=== PATIENT | female | born 1970 | race Caucasian/White ===

== ENCOUNTER → 2018-03-24 | Outpatient (CLI) | payer OTHER ==
[2018-03-24 11:30] LABS: Basophils # (A) 0.1 k/uL (0-0.2); Basophils % (A) 1 %; Eosinophils # (A) 0.3 k/uL (0-0.7); Eosinophils % (A) 3 %; HCT 46.9 % (34.0-46.0); HGB 15.5 gm/dL (11.4-16.0); Lymphocytes # (A) 3.4 k/uL (1.0-4.8); Lymphocytes % (A) 30 %; MCH 29.7 pg (25.0-35.0); MCHC 32.9 g/dL (31.0-37.0); MCV 90.3 fL (80.0-100.0); Mean Platelet Volume 6.7; Monocytes # (A) 0.4 k/uL (0-1.0); Monocytes % (A) 4 %; Neutrophils # (A) 6.9 k/uL (1.3-7.7); Neutrophils % (A) 61 %; Platelet Count 324 k/uL (150-450); RDW 13.7 % (11.5-15.5); WBC 11.3 k/uL (3.8-10.6)
[2018-03-24 11:37] LABS: Potassium 4.8 mmol/L (3.5-5.1)
== END | disposition home or self-care (01) ==
LOC: LABPAT 11:02
PROVIDERS: ATTEND Orthopaedic Surgery
DX: Z01.812 Encounter for preprocedural laboratory examination (principal)
CPT/HCPCS: 36415; 80051; 85025

== ENCOUNTER 2018-03-26 10:39 | Day surgery (SDC) | payer OTHER ==
[2018-03-25 11:40] VITALS: BMI 34.4
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
[~2018-03-26 10:39] MED LIST: DEXAMETHASONE SOD PHOSPHATE 10 MG/ML 1 ML VIAL IV ONE; LACTATED RINGERS 1,000 ML IV SCH; LIDOCAINE 1% 20 ML VIAL (10MG/ML) FOR IV START INTRADERMA PRN; MIDAZOLAM 2 MG/2 ML VIAL IV PRN; ceFAZolin IN SWFI 2 GM/20 ML SYRINGE IVP ONE; fentaNYL (PF) 50 MCG/ML 2 ML AMP IV PRN
[2018-03-26] MEDS ORDERED: ONDANSETRON 4 MG/2 ML VIAL IVP ONE (11:49)
[2018-03-26] MEDS ORDERED: fentaNYL (PF) 50 MCG/ML 2 ML AMP IV ONE (12:39)
[2018-03-26] MEDS ORDERED: LIDOCAINE 1% INJ 10MG/ML (20 ML MDV) ONE (12:53)
[2018-03-26] MEDS ORDERED: MIDAZOLAM 2 MG/2 ML VIAL ONE (12:53)
[2018-03-26] MEDS ORDERED: ROPIVACAINE 5 MG/ML 30 ML VIAL ONE (12:53)
[2018-03-26] MEDS ORDERED: ePHEDrine SULFATE/0.9% NACL/PF 50 MG/5 ML SYRINGE IV ONE (12:53)
[2018-03-26] MEDS ORDERED: PHENYLEPHRINE-0.9% NACL SYG 1 MG/10 ML SYRINGE ONE (12:53)
[2018-03-26] MEDS ORDERED: fentaNYL (PF) 50 MCG/ML 2 ML AMP ONE (12:53)
[2018-03-26] MEDS ORDERED: PROPOFOL 10 MG/ML 20 ML VIAL IV ONE (12:53)
[2018-03-26] MEDS ORDERED: SUCCINYLCHOLINE CHLORIDE VIAL 200 MG/10 ML VIAL IV ONE (12:53)
[2018-03-26] MEDS ORDERED: ceFAZolin 1,000 MG in SODIUM CHLORIDE 0.9% 1,000 ML IRRIGATION ONE (13:27)
--- NOTE | 2018-03-26 13:52 | P.ONQ ---
Anesthesiology Proc Note - PNB - Peripheral Nerve Block Performed Left Supraclavicular Single Procedure Start Time: 12:38 Procedure Stop Time: 12:50 Indication: Requested by physician Specifically requested for management of pain by : Star Martinez Sedation Type: Sedate with meaningful contact maintained Preparation: Sterile Prep Needle Types: Other (see comment) (Pujunk ) Needle Size: 100mm (4") Needle Gauge: 21 Technique: Ultrasound Injectate: 0.5% Ropivacaine (see comment for volume) Blood Aspirated: No Pain Paresthesia on Injection Noted: No Resistance on Injection: Normal Events: Uneventful and Well Tolerated
--- NOTE | 2018-03-26 14:29 | P.OP ---
Date of Procedure: 03/26/18 Preoperative Diagnosis: Displaced left intra-articular distal radius fracture3 part Postoperative Diagnosis: Same Procedure(s) Performed: Open reduction and internal fixation left intra-articular distal radius fracture Implants: [employer] 3-hole standard width volar plate Anesthesia: amanda BLACKWELL Surgeon: Star Martinez Aircraft Engine Mechanic #1: Hung Hernandez Estimated Blood Loss (ml): 10 Pathology: none sent Condition: stable Disposition: PACU Indications for Procedure: The patient's a 47-year-old female who presents after falling about a week and half ago injuring her left wrist. Upon evaluation she is noted have a significantly displaced intra-articular left distal radius fracture. A discussion of the risks and benefits of operative intervention was made with patient she opted to proceed. Operative risks to include infection, neurovascular injury, development of blood clots, possible development nonunion , possible development of malunion and possible need for subsequent procedures was discussed. Informed consent was obtained. Operative Findings: As below Description of Procedure: The patient was brought to the operating room, and after induction of general anesthesia left upper extremity was prepped and draped in normal fashion. Fluoroscopy was used to check the adequacy of reduction with longitudinal traction and manipulation. The tourniquet was inflated to 250 mmHg. A 6 cm incision was then made along the volar aspect the left wrist centered over the FCR. The skin was incised sharply. Subcutaneous tissues were divided bluntly. The tendon sheath was opened and the FCR was gently retracted ulnarly and the radial artery retracted radially. The underlying fascia was opened. The contents the carpal canal were bluntly dissected and retracted ulnarly. The pronator quadratus was elevated subperiosteally. The fracture site was identified and cleaned of clot and debris. This was then provisionally reduced. A 3 hole volar plate was placed provisionally with K wires and position was checked with fluoroscopy. A cortical screw was placed proximally in the sliding hole. The distal row of locked smooth pegs was placed. This was checked with fluoroscopy. The proximal was placed in a similar fashion. The remaining proximal cortical screws were placed. Final fluoroscopic views to include PA, AP, and elevated lateral showed adequate reduction of the fracture and the articular surface. The wound was irrigated normal saline. The subcutaneous tissues were reapproximated interrupted 3-0 Vicryl suture. The skin was reapproximated with 4-0 subcuticular Prolene suture. Steri-Strips were applied. The tourniquet was deflated with approximately 55 minutes total tourniquet time. A sterile dressing was applied in addition to a volar splint. The patient was awoken from general anesthesia and transferred to recovery room in good condition. Blood loss was estimated 10 mL. No complications were incurred. Sponge and needle counts were correct in the case.
--- NOTE | 2018-03-26 14:34 | FL ---
Fluoroscopy HISTORY: Wrist fracture 12 seconds fluoroscopy time supplied to the referring clinician. 3 intraoperative C-arm images docum ent the procedure. See dictated report from orthopedic surgery.
--- NOTE | 2018-03-26 14:35 | XR ---
Limited left wrist HISTORY: Wrist fracture 3 intraoperative C-arm images document the procedure.
[2018-03-26 14:38] VITALS: TEMP 97.1
[2018-03-26 15:38] VITALS: RESP 18
[2018-03-26 15:49] VITALS: PULSE 91
[2018-03-26 16:02] VITALS: BP 138/85
== END 2018-03-26 16:28 | disposition home or self-care (01) ==
LOC: OR 10:39
PROVIDERS: ATTEND Orthopaedic Surgery
DX: S52.572A Other intraarticular fracture of lower end of left radius, initial encounter for closed fracture (principal); W01.0XXA Fall on same level from slipping, tripping and stumbling without subsequent striking against object, initial encounter; Y92.009 Unspecified place in unspecified non-institutional (private) residence as the place of occurrence of the external cause; F17.210 Nicotine dependence, cigarettes, uncomplicated; Z79.891 Long term (current) use of opiate analgesic; Z79.899 Other long term (current) drug therapy; Z79.1 Long term (current) use of non-steroidal anti-inflammatories (NSAID)
CPT/HCPCS: 64415; 81025; 73110; 25609; C1713; J2250; J0330; J1100; J2405; J0690 ×2; J2001; J3010; J2795; J2370; J2704

== ENCOUNTER → 2018-11-05 | Outpatient (CLI) | payer OTHER ==
--- NOTE | 2018-11-05 08:19 | MR ---
EXAMINATION TYPE: MR wrist LT wo con DATE OF EXAM: 11/05/2018 COMPARISON: 03/26/2018 fluoroscopy HISTORY: Lt wrist intraarticular fx lower end radius CONTRAST: None TECHNIQUE: Multiplanar, multiecho imaging on a 3.0 Audrey magnet is performed through the left wrist. FINDINGS: There is fixation of the distal radius which has susceptibility artifact from the screws and plate. T his may cause some limitation during portions of the examination. Attention is paid to the distal radius. There is a hyperintense signal within the mid radius in a arminda gitudinal direction extending to the articular surface. Example image 401 image 14. This could be a n onunion longitudinal fracture. This extends towards the scapholunate junction. This appears to corres pond to the fluoroscopy imaging. There is increased signal within the lunate greater along the radial lunate junction. Contusion and e estrellita should be considered. Scapholunate ligament is not completely defined. No increased space is evident however. Partial or co mplete tear could be considered. The triangular fibrocartilage appears intact. Flexor and extensor tendons have normal low signal. The mid extensor tendons are not well visualized at the level of the radius. Median nerve appears normal. Flexor tendons appear unremarkable. IMPRESSIONS: 1. Small nonunion of a longitudinal fracture at the distal radius is not excluded. No diastases is ap preciated. 2. Contusion and/or edema through the lunate is present. Underlying fracture is not identified. 3. Scapholunate ligament is suspected to be disrupted. No increase in scapholunate space is apparent.
== END | disposition home or self-care (01) ==
LOC: RADMRIMAIN 06:12
PROVIDERS: ATTEND Orthopaedic Surgery
DX: S52.572S Other intraarticular fracture of lower end of left radius, sequela (principal); M66.342 Spontaneous rupture of flexor tendons, left hand

== ENCOUNTER → 2019-03-04 | Day surgery (SDC) | payer OTHER ==
[2019-03-02 12:07] VITALS: BMI 34.4
[~2019-03-04] MED LIST changes: +BUPIVACAINE (PF) 0.5% 30 ML VIAL SQ ONE; +HYDROmorphone (PF) 1 MG/ML ONE; +HYDROmorphone 0.5 MG/0.5 ML SYRINGE IVP PRN; +LACTATED RINGERS 1,000 ML IV ONE; +LIDOCAINE 1% 20 ML VIAL (10MG/ML) FOR IV START INTRADERMA ONE; -LIDOCAINE 1% 20 ML VIAL (10MG/ML) FOR IV START INTRADERMA PRN; +LIDOCAINE 1% INJ 10MG/ML (20 ML MDV) ONE; +LIDOCAINE 1%-EPI 1:100,000 20 ML VIAL SQ ONE; +MIDAZOLAM 2 MG/2 ML VIAL ONE; +ONDANSETRON 4 MG/2 ML VIAL IVP ONE; +PHENYLEPHRINE-0.9% NACL SYG 1 MG/10 ML SYRINGE ONE; +PROPOFOL 10 MG/ML 20 ML VIAL IV ONE; +SCOPOLAMINE 1.5MG/72HR PATCH TRANSDERM ONE; +SUCCINYLCHOLINE CHLORIDE 100 MG/5 ML SYR IV ONE; -ceFAZolin IN SWFI 2 GM/20 ML SYRINGE IVP ONE; -fentaNYL (PF) 50 MCG/ML 2 ML AMP IV PRN; +fentaNYL (PF) 50 MCG/ML 2 ML AMP ONE
[2019-03-04 17:24] VITALS: TEMP 98
[2019-03-04 18:02] VITALS: BP 144/80; PULSE 86; RESP 17
--- NOTE | 2019-03-05 09:29 | FL ---
Fluoroscopy HISTORY: Hardware removal 5 seconds fluoroscopy time supplied to the referring clinician. 5 intraoperative C-arm images docume nt the procedure. See dictated report from orthopedic surgery.
--- NOTE | 2019-03-05 09:30 | XR ---
Limited left wrist HISTORY: Hardware removal 5 intraoperative images document the procedure.
--- NOTE | 2019-03-06 12:28 | P.OP ---
Date of Procedure: 03/04/19 Preoperative Diagnosis: 1. Spontaneous rupture of the left flexor pollicis longus (FPL) tendon 2. Retained hardware status post open reduction and internal fixation of left distal radius fracture Postoperative Diagnosis: 1. Spontaneous rupture of the left flexor pollicis longus (FPL) tendon 2. Partial rupture of the left index finger flexor digitorum superficialis (FDS) tendon, Zone 5 3. Retained hardware status post open reduction and internal fixation of left distal radius fracture Procedure(s) Performed: 1. Exploration of left hand and wrist 2. Removal of hardware - left distal radius 3. Debridement of partial tear of the left index finger FDS tendon 4. Repair of left FPL rupture with left middle finger FDS tendon transfer Anesthesia: SANAA, local Surgeon: Enrique Ho Filling Carrier #1: Maria Eugenia Zaragoza Estimated Blood Loss (ml): 15 Condition: stable Disposition: PACU Indications for Procedure: The patient is a 48-year-old female who sustained a left distal radius fracture and underwent open reduction and internal fixation by another surgeon. Approx imately 3 months after surgery, she was suddenly unable to flex her left thumb interphalangeal joint. She was diagnosed with an FPL rupture and referred to tx for further evaluation. Treatment options (and associated risks and benefits) were discussed in the office, including nonsurgical treatment, primary repair, reconstruction with intercalary graft, tendon transfer or IP arthrodesis. He had a lengthy discussion about the importance of postoperative therapy and adherence to activity restrictions. She expressed understanding, acceptance of the risks and elected to proceed with surgery. Consent forms were signed. The operative site was confirmed and marked. Operative Findings: Complete rupture of the FPL tendon Partial rupture of the index finger FDS tendon (30%) - debrided (no repair required) Description of Procedure: The patient was brought to the operating suite and positioned supine with the operative limb on an arm board. All bony prominences were well-padded. Anesthesia and prophylactic IV antibiotics were administered uneventfully. A tourniquet was placed on the operative arm, which was then prepped and draped in standard, sterile fashion. A timeout was performed, confirming patient identifiers, the operative side, the site and the procedures to be performed: all team members expressed agreement. The limb was exsanguinated with an Esmarch and the tourniquet was inflated. The previous volar incision was utilized and extended distally, curving gently across the wrist flexion crease. The skin was sharply incised. The radial artery was identified and protected throughout the case. The FCR tendon was mobilized. There was abundant, thickened scar tissue from the previous surgery. Combination of sharp and spreading dissection was used to expose the plate. The plate was positioned somewhat obliquely, with the distal portion rotated toward the radial styloid. The most radial corner of the plate was sitting about 3 mm off the bone. The most distal and radial peg was no longer screwed into the plate and was sitting proud. This was easily removed. The peg immediately ulnar to this one was also loose but less prominent. A screwdriver was used to remove the remaining pegs and screws and the plate was removed without difficulty. The fibrous scar tissue below the plate was resected with a rongeur. The previous fracture appeared healed. No intraoperative fractures were identified, neither grossly or with intraoperative fluoroscopy. The wound was explored. The proximal stump of the FPL tendon could not be identified. The muscle belly was retracted and atrophied. The distal stump could not be delivered into the operative field with passive thumb and wrist flexion. Some fraying of the index FDS tendon was identified, consistent with a partial attritional tear. This involved less than 30% of the tendon circumference. Traction on the tendon showed good excursion and no apparent weakness. The frayed edges were sharply resected back to stable margins. A transverse incision was made at the thumb MCP flexion crease. The subcutaneous tissues were bluntly spread. The radial digital nerve was identified, mobilized and protected. The FPL tendon was identified. The A1 xenia was released. A Ragnell retractor was used to apply traction on the tendon and the distal stump was delivered through the wound. The tendon end was bulbous and smoothed over, consistent with a chronic rupture. The decision was made to proceed with FDS transfer. In order to obtain sufficient length, the middle finger was selected as the donor site. An oblique incision was made in the palm, overlying the middle finger A1 xenia. The skin was sharply incised and spreading dissection proceeded down to the flexor sheath. The A1 xenia was incised longitudinally. Ragnell retractors were inserted and used to elevate the flexor tendons out of the wound. The FDS tendon was isolated. The proximal portion of the tendon was not easily identified at the wrist, due to the postoperative scar tissue. The median nerve was identified and carefully dissected free. The proximal portion of the middle finger FDS tendon was identified, confirmed by traction distally. The middle finger was passively flexed and the FDS tendon was sharply sectioned proximal to the deccusation. Traction was applied to the tendon proximally to deliver it through the wrist wound. A curved tendon passer was inserted through the incision in the thumb and passed through the carpal tunnel to the wrist wound. The FDS tendon was grasped and passed easily through the tunnel. The wrist was held in flexion. A small split was made in the distal FPL stump and the FDS tendon was inserted through it. This was provisionally secured at the junction point with a 3-0 Vicryl suture to assess the repair tension. [place] with passive wrist motion demonstrated good IP (interphalangeal) joint flexion and extension. Passive radial abduction of the thumb showed good mobility without tension or restriction. The distal end of the FDS tendon was sutured to the FPL with a horizontal mattress stitch using 3-0 FiberWire suture. Passing the proximal portion of the FPL stump through the FDS tendon again would have created a repair that was too bulky. The proximal FPL tendon was sutured to the FDS with another horizontal mattress stitch. The residual bulbous end of the tendon was resected. The 3-0 FiberWire was used to perform a [id number] repair with interrupted cross stitch sutures, creating 4 suture fixation points on each side of the repair. Repeat passive motion testing of the wrist and thumb demonstrated no gapping at the repair site. There was, however, small amount of restriction at the oblique xenia with terminal IP extension. A small, relaxing incision was made at the distal edge of the oblique xenia to alleviate the restriction, allowing better motion without evidence of bowstringing. The tourniquet was released after 118 minutes at 250 mm Hg. Hemostasis was obtained with manual presure and electrocautery but there was some persistent sanguinous oozing from the hypervascular scar tissue. The wounds were thoroughly irrigated with normal saline. The subcutaneous tissues at the wrist were reapproximated with interrupted 3-0 Vicryl sutures. The incisions were closed with interrupted 4-0 nylon sutures. Additional local anesthetic with epinephrine was injected into the perioperative subcutaneous tissues for adjunctive postoperative pain control and hemostasis. A sterile dressing was applied followed by a dorsal blocking plaster splint. All sponge, needle and instrument counts were correct at the end of the case. The patient tolerated the procedure well and was taken to the recovery room in stable condition.
== END | disposition home or self-care (01) ==
LOC: OR 11:49
PROVIDERS: ATTEND Orthopaedic Surgery
DX: M66.342 Spontaneous rupture of flexor tendons, left hand (principal); S66.111A Strain of flexor muscle, fascia and tendon of left index finger at wrist and hand level, initial encounter; Z47.2 Encounter for removal of internal fixation device; I10 Essential (primary) hypertension; F17.210 Nicotine dependence, cigarettes, uncomplicated; M19.90 Unspecified osteoarthritis, unspecified site; K21.9 Gastro-esophageal reflux disease without esophagitis; Z79.1 Long term (current) use of non-steroidal anti-inflammatories (NSAID); Z79.899 Other long term (current) drug therapy; Z98.890 Other specified postprocedural states; Z90.49 Acquired absence of other specified parts of digestive tract; Z88.2 Allergy status to sulfonamides; Z88.8 Allergy status to other drugs, medicaments and biological substances; X58.XXXA Exposure to other specified factors, initial encounter
CPT/HCPCS: 81025

== ENCOUNTER 2020-08-19 14:07 | Emergency (ER) | payer OTHER ==
[2020-08-19 14:14] VITALS: BP 169/99; PULSE 88; RESP 18; TEMP 98.2
[2020-08-19] MEDS ORDERED: PROPARACAINE 0.5% OPHTH DROPS 15 ML BTL RIGHT EYE STA (15:26)
[2020-08-19] MEDS ORDERED: FLUORESCEIN STRIPS 1 MG STRIP LEFT EYE ONE (15:26)
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
== END 2020-08-19 16:34 | disposition home or self-care (01) ==
LOC: EC 14:07
DX: S05.01XA Injury of conjunctiva and corneal abrasion without foreign body, right eye, initial encounter (principal); F17.200 Nicotine dependence, unspecified, uncomplicated; F12.90 Cannabis use, unspecified, uncomplicated; M19.90 Unspecified osteoarthritis, unspecified site; K21.9 Gastro-esophageal reflux disease without esophagitis; X58.XXXA Exposure to other specified factors, initial encounter
CPT/HCPCS: 99283

== ENCOUNTER 2020-10-17 10:59 | Emergency (ER) | payer OTHER ==
[2020-10-17 11:14] VITALS: BP 175/106; PULSE 85; RESP 18; TEMP 97.9
[2020-10-17] MEDS ORDERED: LIDOCAINE 1% INJ 10MG/ML (20 ML MDV) SQ STA (11:26)
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
== END 2020-10-17 12:25 | disposition home or self-care (01) ==
LOC: EC 10:59
DX: N76.4 Abscess of vulva (principal); K21.9 Gastro-esophageal reflux disease without esophagitis; I10 Essential (primary) hypertension; M19.90 Unspecified osteoarthritis, unspecified site; F17.200 Nicotine dependence, unspecified, uncomplicated; F12.90 Cannabis use, unspecified, uncomplicated; Z88.2 Allergy status to sulfonamides; Z88.1 Allergy status to other antibiotic agents; Z90.49 Acquired absence of other specified parts of digestive tract
CPT/HCPCS: 99283; 56405; 87070; 87205; J2001

== ENCOUNTER 2023-07-29 17:55 | Inpatient (IN) | payer OTHER ==
[2023-07-29] MEDS ORDERED: HEPARIN SODIUM 1,000 UN/ML (10ML VL) ONE (18:00)
[2023-07-29] MEDS ORDERED: fentaNYL (PF) 50 MCG/ML 2 ML AMP ONE (18:00)
[2023-07-29] MEDS: LIDOCAINE 2% (PF) 20 MG/ML 5 ML VIAL SQ ONE (18:29)
[2023-07-29] MEDS ORDERED: ASPIRIN 325 MG TAB ONE (18:30)
[2023-07-29] MEDS: VERAPAMIL 2.5 MG/ML 4 ML VIAL INTRAARTER ONE (18:31)
[2023-07-29] MEDS ORDERED: RX INFO: IV CONTRAST WAS GIVEN 1 EACH MISC MISCELLANE PRN (18:50)
--- NOTE | 2023-07-29 18:53 | P.PCN ---
Date of Procedure: 07/29/23 Operative Findings: CARDIAC CATHETERIZATION PERFORMING PHYSICIAN: Casa Armstrong MD, RPVI PROCEDURE PERFORMED: 1. Selective right and left coronary angiogram 2. Left heart catheterization 3. 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 Local anesthesia was performed using lidocaine subcutaneously. The right radial artery was cannulated using Seldinger technique, the guidewire passed easily, following that we advanced a 5-Malaysian sheath dilator assembly, the wire and dilator were removed and sheath was flushed. Following that, 2 mg of verapamil given Selective right and left coronary angiogram using a 6-Malaysian JR4 and JL 3.5 catheters. Following that we did left heart catheterization using 6-Malaysian pigtail catheter. The procedure was completed there was no complication. SELECTIVE CORONARY ANGIOGRAM: The right coronary artery: Large-caliber vessel and a dominant vessel with mild disease only Left main: Is angiographically normal The left circumflex: Large-caliber vessel nondominant vessel and appears to be angiographically normal and gives rise into a large OM branch which appears to be normal The left anterior descending artery: Large-caliber vessel with mild disease only. Gives rise into the first and second diagonal branches but appears to have mild disease only except for the second diagonal branch ostium has intermediate disease HEMODYNAMICS: LVEDP was 20 mmHg with no significant gradient across aortic valve CONCLUSION: 1. Mild nonobstructive coronary artery disease 2. Elevated left-sided filling pressure POSTPROCEDURE MANAGEMENT: Medical treatment Follow-up with the patient
[2023-07-29] MEDS: IOPAMIDOL-370 100ML BTL INTRATHECA ONE (19:00)
[2023-07-29] MEDS: SODIUM CHLORIDE 0.9% 1,000 ML IV ONE (19:00)
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
[2023-07-29] MEDS: FUROSEMIDE 10 MG/ML 2 ML VIAL IV SCH (20:34)
[2023-07-29] MEDS: ATORVASTATIN 40 MG TAB PO SCH (20:34)
[2023-07-29] MEDS: SODIUM CHLORIDE 0.9% 1,000 ML IV SCH (20:34)
[2023-07-30 04:59] VITALS: RESP 16
[2023-07-30] MEDS: METOPROLOL TARTRATE 12.5 MG TAB PO SCH (09:36)
[2023-07-30] MEDS: LOSARTAN 25 MG TAB PO SCH (09:36)
[2023-07-30] MEDS: ASPIRIN 81 MG PO SCH (09:36)
[2023-07-30] MEDS: ISOSORBIDE MONONITRATE ER 30 MG TAB.ER.24H PO SCH (09:36)
--- NOTE | 2023-07-30 09:55 | CA ---
Transthoracic Echo Report Name: Dorothy Oh Age: 52 Gender: F : 1970 Exam Date: 07/30/2023 08:49 Exam Location: [facility] Ht (in): 69 Wt (lb): 210 Ordering Physician: Dee Gonsalez Attending/Referring Phys: [id number], [employer] Video Editor Zeenat Hale RDCS Procedure CPT: Indications: LV function, s/p cath Cardiac Hx: linited study Technical Quality: Technically difficult study Contrast 1: Definity Total Dose (mL): 2 Contrast 2: Total Dose (mL): MEASUREMENTS (Male / Female) Normal Values 2D ECHO LV Diastolic Volume MOD BP 93.0 cm??? 67 - 155 / 56 - 104 cm??? LV Systolic Volume MOD BP 55.0 cm??? 22 - 58 / 19 - 49 cm??? LV Ejection Fraction MOD BP 40.9 % >= 55 % LV Cardiac Index MOD BP 1010.3 cm???/min???m??? LV Diastolic Volume MOD 4C 91.0 cm??? LV Systolic Volume MOD 4C 55.5 cm??? LV Ejection Fraction MOD 4C 39.0 % LV Cardiac Index MOD 4C 944.1 cm???/min???m??? LV Diastolic Length 4C 6.8 cm LV Systolic Length 4C 6.5 cm LV Diastolic Volume MOD 2C 99.1 cm??? LV Systolic Volume MOD 2C 60.3 cm??? LV Ejection Fraction MOD 2C 39.2 % LV Cardiac Index MOD 2C 1033.5 cm???/min???m??? LV Diastolic Length 2C 8.4 cm LV Systolic Length 2C 8.5 cm DOPPLER TR Peak Velocity 230.8 cm/s TR Peak Gradient 21.3 mmHg Right Ventricular Systolic Press 25.2 mmHg FINDINGS Left Ventricle Left ventricular ejection fraction is estimated at 35-40 %. Anteroapical, mid anterior and anteroseptal severe hypokinesis. Right Ventricle Right ventricular systolic pressure within normal limits. Right Atrium Left Atrium Mitral Valve Structurally normal mitral valve. Mild mitral regurgitation. Aortic Valve No aortic valve stenosis or regurgitation. Tricuspid Valve Pulmonic Valve Pulmonic valve not well visualized. Pericardium No pericardial or pleural effusion. Aorta CONCLUSIONS Limited echo. Technically difficult study. Definity ECHO contrast used for improved visualization of the endocardial borders (inadequate visualization of two or more contiguous segments). Anteroapical, mid anterior and anteroseptal wall severe hypokinesis with moderate to severe impairment in the left ventricle systolic function Limited Doppler study with mild mitral regurgitation Previewed by: Dr. Candace Camarena MD (Electronically Signed) Final Date: 30 Jul 2023 09:54
--- NOTE | 2023-07-30 10:38 | P.PN ---
Subjective HISTORY OF PRESENT ILLNESS: The patient is a 52-year-old female patient with no history of coronary artery disease or congestive heart failure and no diabetes or hypertension or dyslipidemia and she was not receiving any medications as an outpatient. She is a smoker though. She presented to the emergency department at [facility] earlier today complaining of chest discomfort started several hours before. She was experiencing discomfort across the chest as a pressure with radiation to her jaw as well as radiation to the left arm with no associated dizziness or lightheadedness or sweating or any presyncope or syncope which she was experiencing also shortness of breath with exertion. At the emergency department over there she underwent further investigation including troponin which came in to be abnormal and consistent with acute coronary syndrome. She also underwent an EKG which showed Q waves inferiorly with ST kathy nges in the anteroseptal leads definitely concerning for severe underlying coronary artery disease. The initial EKG showed about [address] segment elevation but subsequent EKG showed biphasic T wave and T wave inversion anteriorly. So she was experiencing dynamic EKG changes. The rest of the blood work including CBC came in to be unremarkable with normal hemoglobin and platelet count and also she underwent BMP came in to be unremarkable with normal GFR. With the EKG changes and abnormal troponin and the symptoms we felt that the patient need to undergo an urgent heart catheterization. She was transferred to [facility] where she underwent a heart catheterization and that revealed mild nonobstructive coronary artery disease but elevated left-sided filling pressure with LVEDP exceeding 20 mmHg. The procedure was performed from the right radial artery. The patient was asymptomatic by the end of the procedure. I reviewed the paperwork and the chart from [facility] and that revealed that her pressure has been elevated when she was in the emergency department over there. The patient does not see any primary care physician regularly and she does not recall the last time she was seen by her primary care physician. The examination is remarkable for distant heart sounds with a systolic murmur at the right and left upper sternal border with clear breathing sounds bilaterally and no edema was noted in the lower extremities 07/30/2023 Patient is status postcardiac catheterization with Dr. Armstrong yesterday revealing mild nonobstructive CAD. Elevated left-sided filling pressures. The patient was started on IV Lasix. Patient examined this morning at the bedside. Patient denies any chest pain or pressure. She denies any shortness of breath. Vital signs are stable. Patient is very anxious to be discharged home today. Echocardiogram completed revealing ejection fraction 35 to 40%, anterior apical, mid anterior, and anterior septal severe hypokinesis, mild MR. PHYSICAL EXAM: VITAL SIGNS: Reviewed. GENERAL: Well-developed in no acute distress. NECK: Supple. No JVD or thyromegaly LUNGS: Respirations even and unlabored. Lungs essentially clear to auscultation bilaterally. HEART: Regular rate and rhythm. S1 and S2 heard. EXTREMITIES: Normal range of motion. No clubbing or cyanosis. Peripheral pulses intact. No lower extremity edema ASSESSMENT: Non-STEMI Mild nonobstructive CAD Nonischemic cardiomyopathy Hypertension Hyperlipidemia Obesity: BMI 31.1 PLAN: Continue aspirin, atorvastatin, and losartan Add metoprolol tartrate 12.5 mg twice a day and Imdur 30 mg daily Discontinue IV Lasix. Begin oral Lasix 40 mg daily starting tomorrow Patient may be discharged home today from a cardiac standpoint She is to follow-up postdischarge with Dr. Armstrong Nurse practitioner note has been reviewed by physician. Signing provider agrees with the documented findings, assessment, and plan of care documented by FORM MAKER as a scribe. Objective - Vital Signs Vital signs: Vital Signs Temp 97.9 F 07/30/23 04:00 Pulse 68 07/30/23 04:00 Resp 16 07/30/23 04:00 BP 133/89 07/30/23 04:00 Pulse Ox 98 07/30/23 04:00 FiO2 Intake & Output 07/29/23 07/30/23 07/30/23 18:59 06:59 18:59 Intake Total 540 Balance 540 Weight 95.4 kg Intake: IV 300 Oral 240 Other: Voiding Method Toilet # Voids 3
[2023-07-30 11:12] VITALS: TEMP 98.4
[2023-07-30] MEDS ORDERED: ESCITALOPRAM 10 MG TAB PO SCH (13:00)
[2023-07-30 13:08] VITALS: BP 120/71; PULSE 61
[2023-07-31] MEDS ORDERED: FUROSEMIDE 40 MG TAB PO SCH (09:00)
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
--- NOTE | 2023-08-03 10:42 | P.DS ---
Providers Date of admission: 07/29/23 17:55 Expected date of discharge: 07/30/23 Attending physician: Beti Turner Consults: 07/30/23 08:16 Consult Physician Routine Consulting Provider: Monserrat Hanley Consult Reason/Comments: s/p cath Do you want consulting provider notified?: Already Contacted Primary care physician: Stated None Hospital Course: Final diagnosis Chest pain, acute NSTEMI Status post cardiac catheterization showing mild nonobstructive coronary artery disease History of hypertension History of GERD Continued ongoing nicotine dependence Hyperlipidemia Obesity with a BMI 31.1 GI prophylaxis DVT prophylaxis Full code Discharge disposition Patient is being discharged in a stable condition with guarded prognosis to home. Patient will follow-up with Dr. Perico Turner in the outpatient setting upon discharge. Patient is to continue with medications as prescribed and close outpatient follow-up with cardiology as scheduled. Patient provided resources for outpatient primary care providers as well as dermatology in the outpatient setting. Total time taken is greater than 35 minutes. Hospital course This is a 52-year-old female who was recently admitted at [facility] for chest pain acute NSTEMI and brought to [facility] for cardiac catheterization. Patient is status post cardiac catheterization with cardiology recommending maximizing medical management and has been cleared for discharge. Patient reports to feeling well and would like to go home. Please refer to other consultation note for further HPI. Smoking cessation was counseled extensively. Currently no reports of chest pain, shortness of breath, or palpitations. Patient is afebrile. No reports of nausea or vomiting and patient is tolerating diet. Patient will be discharged home today. Guarded prognosis Physical exam: Gen: This is a 52-year-old female who is awake, alert and oriented x 3, well- developed, well-nourished, elderly appearing, obese HEENT: Head is atraumatic, normocephalic. Pupils equal, round. Sclerae is anicteric. NECK: Supple. No JVD. No lymphadenopathy. No thyromegaly. LUNGS: Clear to auscultation. No wheezes or rhonchi. No intercostal retractions. HEART: Regular rate and rhythm. No murmur. ABDOMEN: Soft. Bowel sounds are present. No masses. No tenderness. EXTREMITIES: No pedal edema. No calf tenderness. NEUROLOGICAL: Patient is awake, alert and oriented x3. Cranial nerves 2 through 12 are grossly intact. Please refer to medication reconciliation sheet for a list of medications. The impression and plan of care has been dictated by Shira Ozuna, Nurse Practitioner as directed. Dr. Camelia MD I have performed a history and examination and MDM of this patient, discussed the same with the dictator, and agree with the dictator's assessment and plan as written ,documented as a scribe. Based on total visit time, I have performed more than 50% of the visit. Plan - Discharge Summary Discharge Rx Participant: No New Discharge Prescriptions: New Furosemide [Lasix] 40 mg PO DAILY #90 tablet Aspirin 81 mg PO DAILY #90 tab Losartan [Cozaar] 12.5 mg PO DAILY #90 tab Isosorbide Mononitrate ER [Imdur] 30 mg PO DAILY #90 tab Atorvastatin [Lipitor] 40 mg PO HS #90 tab Metoprolol Tartrate [Lopressor] 12.5 mg PO BID #90 tab Continue Omeprazole 20 mg PO DAILY HYDROcodone/APAP 10-325MG [[place] 10-325] 1 tab PO TID PRN PRN Reason: Pain Escitalopram [Lexapro] 10 mg PO DAILY Discontinued lisinopriL [Zestril] 5 mg PO DAILY Discharge Medication List Omeprazole 20 mg PO DAILY 07/29/23 [History] Aspirin 81 mg PO DAILY #90 tab 07/30/23 [Rx] Atorvastatin [Lipitor] 40 mg PO HS #90 tab 07/30/23 [Rx] Escitalopram [Lexapro] 10 mg PO DAILY 07/30/23 [History] Furosemide [Lasix] 40 mg PO DAILY #90 tablet 07/30/23 [Rx] HYDROcodone/APAP 10-325MG [[place] 10-325] 1 tab PO TID PRN 07/30/23 [History] Isosorbide Mononitrate ER [Imdur] 30 mg PO DAILY #90 tab 07/30/23 [Rx] Losartan [Cozaar] 12.5 mg PO DAILY #90 tab 07/30/23 [Rx] Metoprolol Tartrate [Lopressor] 12.5 mg PO BID #90 tab 07/30/23 [Rx] Follow up Appointment(s)/Referral(s): Casa Armstrong MD [STAFF PHYSICIAN] - 1 Week (office will call with appt.) Pablo Shirley MD [REFERRING] - 1 Week Eula Wharton MD [STAFF PHYSICIAN] - 1 Week Patient Instructions/Handouts: Heart Attack (DC), Heart Catheterization (DC), After Radial Heart Catheterization (GEN) Activity/Diet/Wound Care/Special Instructions: Activity limited until follow-up Follow-up with primary care provider on discharge Follow-up with cardiology outpatient in 1 to 2 weeks Follow-up with dermatology outpatient Establish with a primary care provider Continue heart healthy diet Discharge Disposition: HOME SELF-CARE
== END 2023-07-30 15:32 | disposition home or self-care (01) | DRG 190 ==
LOC: 3SCARD 17:55
PROVIDERS: ADMIT Hospitalist; ATTEND Hospitalist
PROC: 4A023N7 Measurement of Cardiac Sampling and Pressure, Left Heart, Percutaneous Approach (ICD-10-PCS; principal; 2023-07-29 17:56)
PROC: B2111ZZ Fluoroscopy of Multiple Coronary Arteries using Low Osmolar Contrast (ICD-10-PCS; principal; 2023-07-29 17:56)
DX: I21.4 Non-ST elevation (NSTEMI) myocardial infarction (principal); E66.9 Obesity, unspecified; E78.5 Hyperlipidemia, unspecified; F17.200 Nicotine dependence, unspecified, uncomplicated; I42.8 Other cardiomyopathies; Z68.31 Body mass index [BMI] 31.0-31.9, adult; I25.10 Atherosclerotic heart disease of native coronary artery without angina pectoris; I10 Essential (primary) hypertension; Z28.310 Unvaccinated for COVID-19; Z28.21 Immunization not carried out because of patient refusal; Z88.2 Allergy status to sulfonamides
CPT/HCPCS: 76937; 93308; 93458